=== PATIENT | female | born 1965 | race African-American/Black ===

== ENCOUNTER 2017-08-09 15:53 | Inpatient (IN) | payer BC ==
[2017-08-09 16:25] LABS: #Eosinphils 0.1 thou/uL (0.0-0.7); #Lymphocytes 1.5 thou/uL (1.20-3.40); #Monocytes 0.3 thou/uL (0.11-0.59); #Neutrophils 2.4 thou/uL (1.40-6.50); %Basophils 0.5 % (0.0-1.0); %Eosinophils 2.5 % (0.0-10.0); %Lymphocytes 35.2 % (21.0-51.0); %Neutrophils 54.8 % (42.0-75.0); Hemoglobin 13.4 g/dL (12.0-16.0); Mean Corpuscular HGB CONC 32.1 g/dL (32.0-36.0); Mean Corpuscular Hemoglobin 28.4 pg (27.0-31.0); Mean Corpuscular Volume 88.4 fl (81.0-99.0); Mean Platelet Volume 9.2 fL (7.4-10.4); Platelet Count 166 thou/uL (130-400); RBC Distribution Width 12.7 % (11.5-14.5); Red Blood Cell (RBC) Count 4.71 mill/uL (4.20-5.40); White Blood Cell (WBC) Count 4.3 thou/uL (4.8-10.8)
[2017-08-09 16:41] LABS: ALT (SGPT) 89 U/L (8-55); AST (SGOT) 54 U/L (5-34); Albumin 4.1 g/dL (3.5-5.0); Alkaline Phosphatase 80 U/L (40-150); Anion Gap 12 mmol/L (10-20); BUN (Urea Nitrogen) 20 mg/dL (7.0-18.7); Bilirubin, Total 1.1 mg/dL (0.2-1.2); CK (CPK) 199 U/L (29-168); Calc. Creatinine Clearance 0 mL/min (70-130); Calcium 9.8 mg/dL (7.8-10.44); Carbon Dioxide 26 mmol/L (22-29); Chloride 105 mmol/L (98-107); Estimated GFR-MDRD Greater than 90; Globulin 2.7 g/dL (2.4-3.5); Glucose 141 mg/dL (70-105); Potassium 4.1 mmol/L (3.5-5.1); Protein, Total 6.8 g/dL (6.0-8.3); Sodium 139 mmol/L (136-145)
[2017-08-09 16:45] LABS: CKMB 1.9 ng/mL (0-6.6); Troponin I 0.013 ng/mL (< 0.028)
--- NOTE | 2017-08-09 18:50 | RAD ---
CHEST ONE VIEW: History: Chest pain. FINDINGS: Cardiac silhouette is magnified and upper limits of normal in size. Pulmonary vasculature is unremark able. Mediastinum is midline. No lobar consolidation or evidence of pneumothorax. float builder evan ds overlie the chest. IMPRESSION: No active cardiopulmonary abnormalities are demonstrated. POS: [facility]
[2017-08-09 19:51] LABS: Troponin I 0.022 ng/mL (< 0.028)
[2017-08-09 21:14] VITALS: BMI 35.6
[2017-08-09 22:47] LABS: Troponin I 0.023 ng/mL (< 0.028)
[2017-08-09] MEDS ORDERED: HumaLOG 300 UNITS/3 ML VIAL SC PRN ×2 (23:02→23:09)
[2017-08-09] MEDS ORDERED: Dextrose 5% in Water 1,000 ML IV PRN (23:08)
[2017-08-09] MEDS ORDERED: Dextrose 50% Abboject 50 ML SYRINGE IVP PRN (23:08)
--- NOTE | 2017-08-10 03:47 | HP ---
PRIMARY CARE PHYSICIAN: Luan Aviles M.D. CHIEF COMPLAINT: Chest pain and fatigue. HISTORY OF PRESENT ILLNESS: This is a 51-year-old -[place] female with a history of hypertension, hyperlipidemia, type 2 diabetes, and a recent diagnosis of dysrhythmia. Workup has been being done with Dr. Man for Cardiology. She was recently started on propranolol for a dysrhythmia to try to prevent PVCs and tachycardia. The patient states that she started her first dose of the propranolol 2 days ago, she developed some nausea the next morning and this morning upon waking up, she developed fatigue, shortness of breath, tingling in her hands and on and off chest pains. She initially went to urgent care this morning. Initial EKG revealed a heart rate of 39 and due to her bradycardia and chest pain, she was sent to the emergency department for further evaluation. In the ED, she had a negative workup except for again abnormal EKG initially with bradycardia as well as frequent premature ventricular contractions. Upon interviewing the patient, she states that they were planning on seeing an esthetics instructor for further evaluation. She has now been discontinued from taking the propranolol being admitted for further evaluation and treatment. PAST MEDICAL HISTORY: Hypertension, hyperlipidemia, type 2 diabetes, gastroesophageal reflux disease, irritable bowel disease. MEDICATIONS: Include losartan and hydrochlorothiazide 100/25 mg daily, glipizide 10 mg b.i.d., metformin 500 mg b.i.d., rabeprazole 20 mg daily. She had been started on propranolol 60 mg daily, but discontinued this morning, dicyclomine 10 mg p.r.n. ALLERGIES: PENICILLIN. PAST SURGICAL HISTORY: Cholecystectomy, , and hysterectomy. SOCIAL HISTORY: She is with children. 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 No smoking, no drug use, no alcohol use. FAMILY HISTORY: Positive for heart disease. REVIEW OF SYSTEMS: As per the history of present illness. Constitutional: She denies any recent fevers, chills or recent illness. HEENT: No headache, visual or hearing changes. Cardiac: As per the history of present illness. Pulmonary: No cough or hemoptysis. Gastrointestinal: No vomiting, diarrhea, some nausea which is resolved now. Neurologic: No weakness, seizures, syncope. She has increased fatigue and tingling in her fingers which is resolved. Genitourinary: No dysuria or hematuria. PHYSICAL EXAMINATION: VITAL SIGNS: Temperature 98.4, pulse of 54, respirations 20, blood pressure 109 /69, pulse ox is 98% on room air. GENERAL: She is awake and alert, in no acute distress. Speech is clear. NECK: Supple, no JVD, adenopathy or bruits. HEART: S1S2 with ectopy; no murmur LUNGS: Clear bilaterally. ABDOMEN: Soft. EXTREMITIES: No clubbing, cyanosis or edema, 2+ peripheral pulses bilaterally. LABORATORY DATA: White blood cell count 4300, hemoglobin and hematocrit 13.4 and 41.7, platelets of 166. Sodium 139, potassium 4.1, chloride 105, CO2 of 26 , BUN and creatinine 20 and 0.72 with a GFR of 90, random glucose of 141. Last A1c was 7.0. AST and ALT are slightly elevated at 54 and 89. BNP was slightly elevated at 220. TSH is pending. Chest x-ray revealed no acute disease. ASSESSMENT AND PLAN: This is a 51-year-old female with history of hypertension , type 2 diabetes, now with episode of chest pain and fatigue. 1. Likely secondary to side effect from propranolol causing bradycardia, shortness of breath and fatigue. I will discontinue the propranolol and continue to monitor on telemetry. 2. Chest pain is resolved. Again, likely secondary to side effects. We will continue to monitor and continue to rule out myocardial infarction protocol. 3. Transaminitis, mild. We will recheck in the morning and monitor. 4. Type 2 diabetes. We will continue oral meds and start a sliding scale. 5. We will check echocardiogram and fasting lipids. SHELBYD
[2017-08-10 05:23] LABS: ALT (SGPT) 63 U/L (8-55); AST (SGOT) 31 U/L (5-34); Albumin 3.5 g/dL (3.5-5.0); Alkaline Phosphatase 73 U/L (40-150); Anion Gap 11 mmol/L (10-20); BUN (Urea Nitrogen) 19 mg/dL (7.0-18.7); Bilirubin, Total 0.7 mg/dL (0.2-1.2); Calc. Creatinine Clearance 141 mL/min (70-130); Calcium 9.3 mg/dL (7.8-10.44); Carbon Dioxide 23 mmol/L (22-29); Cardiac Risk 2.5 (Less than 4.5); Chloride 108 mmol/L (98-107); Cholesterol 163 mg/dl (< 200 Desired); Estimated GFR-MDRD Greater than 90; Globulin 2.2 g/dL (2.4-3.5); Glucose 179 mg/dL (70-105); HDL Cholesterol 65 mg/dL (>60 Neg Risk); LDL Cholesterol, Calculated 56 mg/dL; Potassium 3.7 mmol/L (3.5-5.1); Protein, Total 5.7 g/dL (6.0-8.3); Sodium 138 mmol/L (136-145); Triglycerides 209 mg/dL (Less than 150)
[2017-08-10 06:52] LABS: T4 4.9 ug/dL (4.87-11.72)
[2017-08-10] MEDS ORDERED: glipiZIDE 10 MG TAB PO SCH (08:00)
[2017-08-10] MEDS: metFORMIN 500 MG TAB PO SCH ×2 (08:41→16:47)
[2017-08-10] MEDS ORDERED: Aspirin 81 mg Enteric Coated Tablet PO SCH (09:00)
[2017-08-10] MEDS ORDERED: Losartan/Hydrochlorothiazide 100 mg/25 mg Tablet PO SCH (09:00)
--- NOTE | 2017-08-10 11:15 | PRG ---
DATE OF SERVICE: 08/10/2017 SUBJECTIVE: Ms. Amezcua was admitted yesterday to the emergency room. She apparently has some ash st discomfort as well as funny feelings to her chest. She has been started on medicine through her c ardiologist. At this time, she is resting quietly. She states she has had no further symptoms. LABORATORY DATA: Her electrolyte panel within normal limits. Serial troponins are negative thus far . Review of her rhythm strip shows no evidence of arrhythmogenic issues other than PVCs. IMPRESSION: This is a 51-year-old female with a history of type 2 diabetes mellitus with some appare nt chest discomfort associated with lightheadedness. PLAN: We will wait for Cardiology and make recommendations. She has an echocardiogram ordered and s tress testing that will be decided by Cardiology.
[2017-08-10 15:38] VITALS: BP 127/89; TEMP 98.7
--- NOTE | 2017-08-10 16:28 | CON ---
DATE OF CONSULTATION: 08/10/2017 CARDIOLOGY CONSULT ROOM NO: [id number]. The patient's primary care doctor is Dr. Luan Aviles, patient's primary gas line installer is Dr. Shaye Man, and referring doctor is Dr. Garsia. REASON FOR CARDIOLOGY CONSULTATION: Bradycardia. HISTORY OF PRESENT ILLNESS: Ms. Almanzar is a 51-year-old -Omani female with a significan t history of hypertension and diabetes. The patient was seen by Dr. Man in office as outpatient on 08/02/2017 for evaluation of long QT interval. She was seen by her primary care doctor and prescribe d azithromycin for sinus infection, which may cause prolonged QT interval and azithromycin was discon tinued on 05/16/2017 and doxycycline was started for patient's sinus infection. She is taking doxycy hurtado as needed. At that time in the office, patient was asymptomatic. EKG in the office showing lo ng QT with heart rate 87 and at this time, patient was prescribed propranolol 60 mg once a day. She started taking the medicine on Monday, which is and 08/08/2017 she started having inter mittent nausea twice through the night. The patient's condition getting worse with intermittent ches t discomfort and on Monday, she did not take propranolol due to those symptoms; however, patient s tarted feeling almost syncope, dizziness and tightness in her chest. Due to those symptoms, patient decided to present to the emergency department for further evaluation and treatment. At the ER, tierra ent was found to have heart rates going down to 30s, then with normal troponin level. This morning, during the initial Cardiology consult assessment, patient denies chest pain or discomfort, shortness of breath, nausea and vomiting or any other cardiac complaints. Patient's vital signs have been stab le with heart rate in the 70s-80s with frequent PVCs. She had gone to the bathroom several times alr lino without any cardiac complaints. She does not have any family history of a prolonged QT or aSCD; however, the patient has a family his tory of hypertension and diabetes. She does not have any cardiac workup before. PAST MEDICAL HISTORY: 1. Diabetes type 2. 2. Hypertension. 3. Sinus infection. PAST SURGICAL HISTORY: 1. with a partial hysterectomy. 2. Cholecystectomy. FAMILY HISTORY: Patient's father has a history of diabetes and hypertension. The patient's mother h as a history of hypertension, diabetes, and congestive heart failure. Family history of hypertension , diabetes to the patient's paternal side and the patient's cousin in paternal sides has a history of CABG at the age of around 40s. SOCIAL HISTORY: She is , has one daughter who is living well. 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 She de nied any history of smoking, ETOH, or illicit drug abuse. She rarely drinks coffee or any caffeine i ntake. ALLERGIES: She is allergic to PENICILLIN. HOME MEDICATIONS: 1. Aciphex 20 mg once a day. 2. Singulair 10 mg once a day for allergy. 3. Glimepiride 4 mg once a day. 4. Metformin 500 mg twice a day. 5. Valsartan/hydrochlorothiazide 100/25 mg once a day. 6. Propranolol ER 60 mg once a day. 7. Biotin 36256 mg once a day. REVIEW OF SYSTEMS: A 12-point review of systems reviewed and all negative. PHYSICAL EXAMINATION: VITAL SIGNS: Blood pressure 118/68, heart rate 70s-80s with sinus rhythm with the frequent PVCs, tem perature 97.8, respiratory rate 17, O2 saturation 97% with room air. GENERAL: The patient is awake, alert, in no acute distress. HEAD: Normocephalic, atraumatic. EYES: Extraocular muscle movement intact. ENT: Nose and oral mucosa moist without lesion. NECK: No JVD. Supple. Normal range of motion. RESPIRATORY: Clear to auscultate bilaterally. No wheezing, rales, or rhonchi noted. CARDIAC: Irregularly irregular, but able to auscultate frequent skipping beats. Normal S1, S2. The re are no S3 or S4. No murmurs or bruit noted. ABDOMEN: Soft and nontender or mass to palpate. Positive bowel sounds. SKIN: Warm. No bruise or lesions noted. MUSCULOSKELETAL: The patient was able to move all extremities without claudication. No edema. 2+ p ulses in the bilateral lower extremities, but no edema. LABORATORY DATA AND IMAGING DATA: WBC 4.3, hemoglobin 13.4, hematocrit 41.7, and platelet 166. Sodi um 138, potassium 3.7, BUN 19, creatinine 0.65, glucose 179, AST 63, ALT 73, CK-MB 1.9 and troponin 0 .013, 0.022, 0.023. Total cholesterol 163, triglycerides 209, HDL 65, LDL 56, TSH 1.0922, T4 of 4.9. Chest x-ray shows no acute cardiopulmonary abnormalities and 12-lead EKG at ER shows sinus rhythm, heart rate 74 with frequent PVCs, almost trigeminy PVCs and no ST segment change and no T-wave invers ion. ASSESSMENT AND PLAN: 1. Bradycardia, possible due to the side effect from the propranolol. Right now, the medication is on hold and the patient's heart rate and patient's condition is stable. She denied shortness of tavares th or fatigue. Due to the side effect from propranolol, we would like to place EP consult for furthe r evaluation and treatment plan. 2. History of prolonged QT interval. QT interval in the telemetry record and 12-lead EKG showing 0. 40-0.47. It is not more than that 0.48; however, due to patient cannot tolerate the propranolol, aga in we would like to request Dr. Warner, EP doctor to evaluate this patient. 3. Hypertension. The patient's blood pressure is having stable at this moment. We like to continue current medication. 4. Diabetes type 2. A.c and at bedtime blood glucose check with metformin and glyburide which is ma naged by primary care doctor. Thank you for allowing the Cardiology Service to participate in the care of this patient. We like to follow along with other primary care doctors and we would like to make recommendations as appropriat e.
[2017-08-10] MEDS ORDERED: Glimepiride 4 MG TAB PO SCH (16:30)
--- NOTE | 2017-08-11 09:15 | CON ---
DATE OF CONSULTATION: 08/10/2017 ELECTROPHYSIOLOGY CONSULTATION REPORT REFERRING PHYSICIAN: Shaye Man M.D. HISTORY AND PRESENT ILLNESS: I am seeing Ms. Almanzar at our [facility] Telemetry Floor as an electrophysiology actuarial consultant. Her problems are: 1. Near syncopal spells. 2. Frequent premature ventricular contractions, occasionally bigeminy, possibly associated with a pulse deficit giving rise to low pulse rates. 3. History of long QT. 4. Normal LVEF by 2D echocardiogram from 08/10/2017, demonstrating LVEF of 50% to 55%, mild MR, mild TR. 5. Hypertension, hyperlipidemia, and type 2 diabetes. 6. History of gastroesophageal reflux disease. 7. History of irritable bowel disease. ALLERGIES: PENICILLIN. MEDICATIONS: At home include losartan/hydrochlorothiazide 100/25 mg; glipizide ; metformin; rabeprazole; propranolol 60 mg daily, just start this morning; dicyclomine. SUBJECTIVE: Ms. Almanzar is here for episode of dizziness, which drove her to the urgent care center. She was noted to have low pulse rates, but her EKG did not demonstrate bradycardia, but frequent PVCs. The patient was transferred to our facility for further cardiac evaluation. It seems that she has been recently seeing Dr. Man. She noted long QT intervals on her EKG. At that point, she was transiently treated with an antibiotic, possibly a Z-Micah. She never had a prior history of dizziness or passing out spells, no PND, orthopnea or other signs of fluid overload. No angina, no neurological deficits, no bleeding issues. REVIEW OF SYSTEMS: Rest of review of 12-point systems otherwise unremarkable. PAST MEDICAL HISTORY: As above. SOCIAL HISTORY: The patient denies smoking, ETOH or drug abuse. She is , with children. 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 FAMILY HISTORY: Not contributory, but significant for heart disease. OBJECTIVE: VITAL SIGNS: Blood pressure is 127/89, heart rate 70, respirations 16, temperature 98.7 degrees Fahrenheit. GENERAL: Alert and oriented woman, in no apparent distress. NECK: Supple. Jugular veins not distended. CHEST: Coarse without crackles. CARDIOVASCULAR: Heart sounds are regular to rate and rhythm. No murmur or gallop. ABDOMEN: Benign. Bowel sounds positive. EXTREMITIES: Lower extremities without edema, clubbing or cyanosis. Pulses are adequate. NEUROLOGIC: The patient is nonfocal. MUSCULOSKELETAL: No joint swelling or deformities. SKIN: Without rash. DATABASE: EKGs reviewed reveals sinus rhythm, normal AV conduction. QT interval seen 67 milliseconds. The frequent PVCs are noted. LABORATORY DATA: White count is 4.3, hemoglobin 13.4, platelet count is 166. Sodium 130, potassium 3.7, BUN is 19, creatinine is 0.65. ASSESSMENT AND PLAN: Ms. Almanzar is a pleasant 51-year-old woman with prior history of hypertension and recently found prolonged QT on EKGs. She was tried on beta sera, but her rates are more symptomatic with dizzy spells. This morning, she is noted to have frequent PVCs though. At this point, her symptoms improved, she has no chest pains. We discussed the issues with her. Obviously beta sera made her more symptomatic; therefore, need to be stopped. I am wondering whether her low heart rate reading was related to pulse deficits. It is possible that adding the beta sera to the regimen made her overall heart rates lower and hence the process made her more symptomatic. We discussed further treatment options. Antiarrhythmic choices are limited, hence the possibility of long QT at baseline. I would avoid class 3 agents for sure. On the other hand, she could be a candidate for radiofrequency ablation. The morphology of PVCs are right bundle inferior axis with transition in V2, V3, whichcould originate from the RV outflow tract or possibly aortic cusp area. I discussed the option with her. We also detailed the potential benefit from long-term monitoring, especially with her long QT syndrome and recent recurrent near syncopal spells with an event monitor. She is so far and decided and we will discuss further with Dr. Man. We will make arrangements to follow her outpatient and possibly set up for ablation. YOU
--- NOTE | 2017-08-11 14:13 | ADD-CON ---
ADDENDUM DATE OF CONSULTATION: 08/10/2017 CARDIOLOGY CONSULTATION Please refer to the notes already dictated by nurse practitionerAnya INDICATION FOR CONSULTATION: Significant bradycardia. HISTORY OF PRESENT ILLNESS: This is a very pleasant 51-year-old female who was seen by us in the off ice on 08/02/2017 and she has been diagnosed with a long QT syndrome. She has been also seen by elec trophysiologist. We discussed her case with sand analyst previously and she also was having P VCs and they suggested we try beta blockers. Unfortunately, the patient developed significant bradyc ardia associated with the beta blockers and these have now been held, but she continues to have frequ ent PVCs with a prolonged QT. It is felt best that she now undergone an ablation, but she is stable at this time to be discharged to home. She was seen earlier today and most likely will need to under go an ablation in the near future. As far as her past medical history, social history, family histor y, review of systems, please refer to the notes already dictated as well as her list of medications. MEDICATIONS: Her present medications prior to admission include Aciphex, montelukast, glimepiride, m etformin, losartan and we have started her on propranolol 60 mg and this has now been stopped and she was also taking Biotin. PHYSICAL EXAMINATION: GENERAL: Reveals a very pleasant, well-developed, well-nourished female who is in no acute distress. She is alert and oriented. VITAL SIGNS: Her blood pressure is 127/89. She is afebrile. Heart rate is 70s-80s and shows a sinu s rhythm with PVCs, respiratory rate 16. HEENT: Shows head to be normocephalic and atraumatic. Carotid pulses are present. There were no br uits. There is no JVD. The thyroid is not enlarged. Oral mucosa was pink and moist. CHEST: Clear. CARDIOVASCULAR: Reveals a regular rate and rhythm with significant ectopy at times, other times not. She has no gross murmurs, heaves, thrills, bruits or rubs. ABDOMEN: Shows obesity with positive bowel sounds. No organomegaly or masses noted. Femoral pulses are present. EXTREMITIES: Showed no clubbing, cyanosis or edema. Pedal pulses are also present. NEUROLOGIC: The patient appears to be fully intact. There were no gross focal motor deficits. She is able to ambulate without difficulties. SKIN: Warm and dry. IMPRESSION: 1. Bradycardia due to iatrogenic causes after starting blockers for premature ventricular contractio ns. 2. Premature ventricular contractions. She has frequent premature ventricular contractions and will undergo a monitor. This will be ordered for her and she will most likely receive at her residence. Then, she will follow up with sand analyst as soon as possible, which she has scheduled for n ext Monday to discuss most likely ablation of the premature ventricular contractions. The long QT s yndrome will be dealt with by the sand analyst. 3. Hypertension. This is under good control at this time. 4. History of diabetes. This will also be dealt with by the primary care service. 5. Gastroesophageal reflux disease. She is stable as long as she is taking the Aciphex. There were no other significant problems associated with the patient at this time and she appears to be stable. From my point of view, she could be discharged home and follow up with the electrophysiol ogist next week.
== END 2017-08-10 18:18 | disposition home or self-care (01) | DRG 310 ==
LOC: ERS 15:53 → 2NO 19:31 → OBSVTOIN 19:31
PROVIDERS: ADMIT Family Medicine; ATTEND Family Medicine
DX: R00.1 Bradycardia, unspecified (principal); R07.9 Chest pain, unspecified; T44.7X5A Adverse effect of beta-adrenoreceptor antagonists, initial encounter; I10 Essential (primary) hypertension; E78.5 Hyperlipidemia, unspecified; E11.9 Type 2 diabetes mellitus without complications; K21.9 Gastro-esophageal reflux disease without esophagitis; Z79.84 Long term (current) use of oral hypoglycemic drugs; Z79.899 Other long term (current) drug therapy
CPT/HCPCS: 36415; 36416; 71045; 80053; 80061; 82550; 82553; 83880; 84436; 84443; 84484; 85025; 93005; 93306; 94760

== ENCOUNTER 2017-09-11 10:28 | Outpatient (CLI) | payer BC ==
--- NOTE | 2017-09-12 13:07 | MMO ---
SCREENING MAMMOGRAM: Date: 09-11-17 Comparison: 05-25-16, 05-25-15 History: Screening. FINDINGS: This study is interpreted with the assistance of computer aided detection. The breast parenchyma is primarily fatty replaced. Stable. Benign calcification is noted on the left. There is no dominant mass or architectural distort ion. No concerning microcalcifications are seen. IMPRESSION: BIRADS 2 - benign findings. Annual screening mammography advised. POS: [facility]
== END 2017-09-11 10:29 | disposition home or self-care (01) ==
LOC: SCSMAMMO 10:28
PROVIDERS: ATTEND Obstetrics & Gynecology
DX: Z12.31 Encounter for screening mammogram for malignant neoplasm of breast (principal)
CPT/HCPCS: 77067

== ENCOUNTER 2017-09-15 12:55 | Outpatient (CLI) | payer BC ==
[2017-09-15 14:02] LABS: Hemoglobin 13.2 g/dL (12.0-16.0); Mean Corpuscular HGB CONC 32.9 g/dL (32.0-36.0); Mean Corpuscular Hemoglobin 28.6 pg (27.0-31.0); Mean Corpuscular Volume 86.9 fL (78.0-98.0); Mean Platelet Volume 9.4 fL (7.4-10.4); Platelet Count 138 thou/uL (130-400); RBC Distribution Width 12.3 % (11.5-14.5); Red Blood Cell (RBC) Count 4.62 mill/uL (4.20-5.40); White Blood Cell (WBC) Count 4.1 thou/uL (4.8-10.8)
[2017-09-15 14:07] LABS: PTT 24.8 SEC (22.9-36.1); Prothrombin Time 13.1 SEC (12.0-14.7)
[2017-09-15 14:25] LABS: Anion Gap 20 mmol/L (10-20); BUN (Urea Nitrogen) 21 mg/dL (7.0-18.7); Calc. Creatinine Clearance 0 mL/min (70-130); Carbon Dioxide 20 mmol/L (22-29); Chloride 102 mmol/L (98-107); Estimated GFR-MDRD Greater than 90; Glucose 290 mg/dL (70-105); Potassium 3.7 mmol/L (3.5-5.1); Sodium 138 mmol/L (136-145)
== END 2017-09-15 12:56 | disposition home or self-care (01) ==
LOC: LABBT 12:55
PROVIDERS: ATTEND Internal Medicine Cardiovascular Disease
DX: Z01.818 Encounter for other preprocedural examination (principal); I49.3 Ventricular premature depolarization
CPT/HCPCS: 80048; 85027; 85610; 85730; 93005; 93010

== ENCOUNTER 2017-09-18 06:37 | Observation (INO) | payer BC ==
[2017-09-15 13:56] VITALS: BMI 35.6
[2017-09-18] MEDS ORDERED: Lidocaine 1% (PF) 30 ML VIAL ONE (08:23)
[2017-09-18] MEDS ORDERED: Meperidine HCl/PF 25 MG/ML VIAL ONE (08:34)
[2017-09-18] MEDS ORDERED: Midazolam HCl 2 mg/2 ml Vial ONE ×2 (08:34→09:13)
[2017-09-18] MEDS ORDERED: Heparin 25,000 units/D5W 500 ML ONE (10:17)
[2017-09-18] MEDS ORDERED: Heparin 10,000 UNITS/1 ML VIAL ONE ×2 (10:17→10:44)
[2017-09-18] MEDS ORDERED: Fentanyl 100 MCG/2 ML VIAL ONE ×3 (10:44→13:08)
[2017-09-18] MEDS ORDERED: Isoproterenol 0.2 MG/1 ML AMP ONE (11:43)
[2017-09-18] MEDS ORDERED: Protamine Sulfate 50 MG/5 ML VIAL ONE (12:34)
--- NOTE | 2017-09-18 12:37 | OP ---
DATE OF PROCEDURE: 09/18/2017 ELECTROPHYSIOLOGY/RADIOFREQUENCY ABLATION REPORT REFERRING PHYSICIAN: Dr. Shaye Man SURGEON: Dr. Geronimo Warner REASON FOR PROCEDURE: Ms. Almanzar is a 52-year-old woman with a history of prolonged QT and also bradycardia on beta-blockers were initiated for her prolonged QT syndrome. She had near syncopal spells at that time which improved with holding beta blockers. She has noted to have very frequent PVCs, which was high symptomatic, but again could not tolerate beta sera very well. She is here for radiofrequency ablation of the PVCs. PROCEDURE: The patient received deep sedation by Anesthesia specialist with TIVA and after adequate sedation achieved, the left and right femoral venous area was prepped and draped, anesthetized using subcutaneous lidocaine. With ultrasound guidance a 8-Australian short sheath was introduced into the right femoral vein, an 11 Australian short sheath into the left femoral vein. During the case, the right femoral artery was also accessed under ultrasound guidance and an 8 Australian short sheath was introduced. Through the sheaths on the left side, an ice catheter was advanced to the right atrium. The right ventricular and monitoring of the catheter positions as a monitor for effusion was performed throughout case. Also, delineation of the left, right and noncoronary cusp were are also ____ by this catheter. The left main, right coronary artery was also pictured. A Decapolar catheter was advanced to the right atrium and then the right ventricle. Basic EP study was performed. The measurements; AH was 76, HV 50 milliseconds, IA 138, QRS 71 milliseconds, QT 361 milliseconds. AV Wenckebach cycle length was 260 milliseconds. The VA ERP VA Wenckebach cycle was the same , the ERP was 600/280 milliseconds. A extrastimuli testing was performed with ERP measured to be 600/310/270/230 milliseconds with ventricular extrastimuli decremented to the refractory period. No ventricular tachyarrhythmia induced. Very frequent PVCs were noted which were right bundle and inferior axis in morphology. These PVCs were used to perform activation map in the right ventricle and also through a retrograde aortic approach. The sinus of Valsalva as well as the left ventricular outflow tract was also mapped. The prevailing morphology PVCs' earliest activation was 10 ms prior to the QRS in the right coronary cusp. 20 ms in the left ventricular outflow tract's septal portion but earliest activation was demonstrated eventually in the the right ventriclular outflow tract posterioseptal portion, This area and the LV septal area was extensively ablated and we achieved elimination of the PVCs. The same morphology PVCs did return,and also different morphology has recurred, multiple ablation was performed in the area. Reduced burden of the PVCs were noted in the end of the case. At the end of the case, no change in cardiac silhouette and no pericardial effusion seen by ICE imaging. Total of 22 min ablation was delivered. CONCLUSION: Successful mapping and ablation of the PVCs, although with reduction of burden seen, but regular PVC still noted in the case. If burden does not improve with post-ablation on monitoring with continued beta sera therapy, could consider epicardial approach as well. [facility]
[2017-09-18] MEDS ORDERED: Nitroglycerin 0.4 MG TAB (25 Tab Bottle) SL PRN (18:15)
[2017-09-18] MEDS: Glimepiride 4 MG TAB PO SCH (20:18)
[2017-09-18] MEDS ORDERED: metFORMIN 500 MG TAB PO SCH (21:00)
[2017-09-18] MEDS ORDERED: Montelukast Sodium 10 mg Tablet PO SCH (21:00)
[2017-09-18] MEDS ORDERED: Famotidine 20 MG TAB PO SCH (22:30)
[2017-09-18] MEDS: Mag-Al 1200 mg/1200 mg/30 ML UDCUP PO PRN (23:43)
[2017-09-19] MEDS: Mag-Al 1200 mg/1200 mg/30 ML UDCUP PO PRN (07:16)
[2017-09-19] MEDS: Glimepiride 4 MG TAB PO SCH (08:16)
[2017-09-19] MEDS ORDERED: Aspirin 81 mg Enteric Coated Tablet PO SCH (09:00)
[2017-09-19] MEDS ORDERED: Losartan/Hydrochlorothiazide 100 mg/25 mg Tablet PO SCH (09:00)
[2017-09-19 11:46] VITALS: TEMP 98.5
[2017-09-19 15:14] VITALS: BP 132/84
--- NOTE | 2017-09-20 10:39 | DIS ---
DATE OF ADMISSION: 09/18/2017 DATE OF DISCHARGE: 09/19/2017 REFERRING PHYSICIAN: Shaye Man M.D. ADMITTING DIAGNOSES: 1. History of frequent PVCs: A. Trans to propranolol therapy with subsequent syncope. B. Status post elective RVOT-PVC ablation by Dr. Warner on 09/18/2017. 2. History of prolonged QT syndrome without documented torsades like arrhythmias. 3. History of preserved left ventricular systolic function. HOSPITAL COURSE: Ms. Almanzar was admitted for elective ablation procedure, which was performed yes terday. She had an extensive mapping including both the right ventricular outflow tract, left ventri cular outflow tract and the coronary sinuses as well. The earliest activation from both the left kelly tricular outflow tract and the right ventricular outflow tract were ablated. She still has residual PVCs at the end of the procedure and throughout the evening of the procedure on the subsequent day, t he PVCs seems to have resolved. She is feeling well post-ablation. She had mild burning-like sensat ion overnight suggestive of some pericardial irritation. No true angina is noted. The groins remain ed without reaction. No swelling or bleeding occurred. She remained hemodynamically stable. PHYSICAL EXAMINATION: VITAL SIGNS: Blood pressure 133/84, heart rate is 93, respirations 18, temperature 98.5 degrees, afe brile. GENERAL: Alert, oriented woman in no apparent distress. NECK: Supple. Jugular veins are distended. CHEST: Coarse crackles, no regular heart sounds are heard. No murmur, gallop or rub is appreciated. ABDOMEN: Benign. Both groins sites are healing well. Thorough chest x-ray reviewed revealing sinus rhythm with occasional PVCs, which are diminishing by . ASSESSMENT AND PLAN: Ms. Almanzar is a pleasant 52-year-old woman who has history of single PVCs an d possible long QT syndrome. She is on low dose beta sera therapy, which she could not tolerate O N higher dosages as syncope occurred in the past and stopped. On the other hand, she underwent an ab lation procedure, checking the the right ventricular outflow tract. Both left and right ventri austin ablations were performed. Still had residual PVCs, but today the PVCs are diminishing. Our plan at this point is to discharge her and continue low dose beta sera therapy as before. She is encouraged to take ibuprofen versus Motrin over the counter if significant pericardial irritation is present for the next couple of days and is advised to notify us in the office. Routine followup is requested in 4-6 weeks.
== END 2017-09-19 15:05 | disposition home or self-care (01) ==
LOC: CCL 06:37 → 2SW 13:32
PROVIDERS: ADMIT Internal Medicine Cardiovascular Disease; ATTEND Internal Medicine Cardiovascular Disease
DX: I49.3 Ventricular premature depolarization (principal); I10 Essential (primary) hypertension; E78.5 Hyperlipidemia, unspecified; E11.9 Type 2 diabetes mellitus without complications; Z79.82 Long term (current) use of aspirin; Z79.84 Long term (current) use of oral hypoglycemic drugs; Z79.899 Other long term (current) drug therapy
CPT/HCPCS: 36416; 76942; 85347; 93613; 93623; 93654; 93662; 93798; 96360; 96361; C1730; C1759; C1769; G0378; J1644; J2001; J2175; J2250; J2720; J3010

== ENCOUNTER 2017-11-21 09:03 | Observation (INO) | payer BC ==
[2017-11-21 09:35] LABS: #Eosinphils 0.1 thou/uL (0.0-0.7); #Lymphocytes 1.4 thou/uL (1.20-3.40); #Monocytes 0.3 thou/uL (0.11-0.59); #Neutrophils 2.6 thou/uL (1.40-6.50); %Basophils 0.4 % (0.0-1.0); %Eosinophils 1.8 % (0.0-10.0); %Lymphocytes 32.1 % (21.0-51.0); %Monocytes 6.8 % (0.0-10.0); %Neutrophils 58.9 % (42.0-75.0); Hemoglobin 12.7 g/dL (12.0-16.0); Mean Corpuscular HGB CONC 31.7 g/dL (32.0-36.0); Mean Corpuscular Hemoglobin 27.9 pg (27.0-31.0); Mean Corpuscular Volume 87.9 fL (78.0-98.0); Mean Platelet Volume 9.7 fL (7.4-10.4); Platelet Count 139 thou/uL (130-400); RBC Distribution Width 12.7 % (11.5-14.5); Red Blood Cell (RBC) Count 4.56 mill/uL (4.20-5.40); White Blood Cell (WBC) Count 4.4 thou/uL (4.8-10.8)
[2017-11-21 10:01] LABS: CKMB 2.6 ng/mL (0-6.6); Troponin I Less than 0.010 ng/mL (< 0.028)
--- NOTE | 2017-11-21 10:18 | RAD ---
RADIOGRAPH CHEST 1 VIEW: HISTORY: A 52-year-old female with chest pain. FINDINGS: There are no air space densities, pulmonary edema, pneumothorax, or cardiomegaly. The lateral costop hrenic angles are sharp. IMPRESSION: No acute cardiopulmonary findings. jn [] POS: COLLEEN
[2017-11-21 12:17] LABS: Albumin 3.7 g/dL (3.5-5.0)
[2017-11-21] MEDS ORDERED: Nitroglycerin 2% Ointment 1 INCH/1 GM Packet ONE (12:18)
[2017-11-21 12:19] LABS: Calcium 9.8 mg/dL (7.8-10.44); Chloride 104 mmol/L (98-107); Potassium 4.2 mmol/L (3.5-5.1); Sodium 137 mmol/L (136-145)
[2017-11-21 12:20] LABS: Globulin 3.2 g/dL (2.4-3.5); Glucose 127 mg/dL (70-105); Protein, Total 6.9 g/dL (6.0-8.3)
[2017-11-21 12:21] LABS: Anion Gap 18 mmol/L (10-20); Carbon Dioxide 19 mmol/L (22-29)
[2017-11-21 12:22] LABS: Bilirubin, Total 0.8 mg/dL (0.2-1.2)
[2017-11-21 12:23] LABS: Alkaline Phosphatase 53 U/L (40-150)
[2017-11-21 12:24] LABS: BUN (Urea Nitrogen) 22 mg/dL (7.0-18.7); Calc. Creatinine Clearance 0 mL/min (70-130); Estimated GFR-MDRD Greater than 90
[2017-11-21 12:25] LABS: AST (SGOT) 36 U/L (5-34)
[2017-11-21 12:26] LABS: ALT (SGPT) 31 U/L (8-55); CK (CPK) 111 U/L (29-168)
[2017-11-21 13:09] LABS: Troponin I Less than 0.010 ng/mL (< 0.028)
[2017-11-21] MEDS ORDERED: Ondansetron ODT 4 MG TAB PO PRN (14:25)
[2017-11-21] MEDS ORDERED: Ondansetron HCl/PF 4 MG/2 ML Vial IVP PRN (14:25)
[2017-11-21] MEDS ORDERED: Acetaminophen 325 MG TAB PO PRN (14:25)
[2017-11-21 14:31] VITALS: BMI 35.8
[2017-11-21] MEDS ORDERED: Insulin Regular 300 UNITS/3 ML VIAL SC PRN (14:59)
[2017-11-21] MEDS ORDERED: Dextrose 50% Abboject 50 ML SYRINGE SLOW IVP PRN (14:59)
[2017-11-21] MEDS ORDERED: Dextrose 5% in Water 1,000 ML IV PRN (14:59)
[2017-11-21 15:51] LABS: Troponin I Less than 0.010 ng/mL (< 0.028)
[2017-11-21] MEDS: Glimepiride 4 MG TAB PO SCH (20:30)
[2017-11-21] MEDS ORDERED: metFORMIN 500 MG TAB PO SCH (21:00)
[2017-11-21] MEDS ORDERED: Montelukast Sodium 10 mg Tablet PO SCH (21:00)
--- NOTE | 2017-11-22 00:29 | HP ---
DATE OF ADMISSION: 11/21/2017 ADMITTING PHYSICIAN: Luan Aviles MD HISTORY OF PRESENT ILLNESS: Patient is a 52-year-old female who has a history of multiple PVCs assoc iated with ventricular arrhythmias. She is status post ablation. She has been doing well after abla tion approximately 4-5 weeks ago. Now notes she had onset of palpitations today associated with some chest pain, some shortness of breath. She did not note any nausea, vomiting, diarrhea, no fever has been reported. She came to the ER, she is found to have some ventricular bigeminy on a recurrent ba sis with multiple PVCs noted. Initial cardiac enzymes are negative. She was treated with topical ni troglycerin. She is now being admitted because she needs to have further ablation therapy. Previous ly, her manager part and compliance consultant were consulted. He stated that she be admitted; however , he does not admit patients. At the time I interviewed, the patient was resting comfortably. She was feeling no further chest christian n or shortness of breath. Otherwise, no other medical complaints. ALLERGIES: She has known allergies. CURRENT MEDICATIONS: Losartan/hydrochlorothiazide 100/25 one daily, metformin 500 mg b.i.d., glimepi ride 4 mg dose 1 daily, metoprolol 25 mg daily, aspirin 81 mg daily, nitroglycerin as needed for ches t pain. PAST MEDICAL HISTORY: Positive for the above noted cardiac history. Additionally, she also has a hi story of irritable bowel, GERD, type 2 diabetes mellitus, and hypertension. PAST SURGICAL HISTORY: Positive for cholecystectomy, section, and hysterectomy. SOCIAL/PERSONAL HISTORY: She is . She does not smoke nor does she drink alcohol. REVIEW OF SYSTEMS: Genitourinary: Negative. Gastrointestinal: Negative. Cardiovascular: Positiv e as above. Neurologic: Otherwise, negative. PHYSICAL EXAMINATION: VITAL SIGNS: Blood pressure 156, temperature 98.1, pulse 78 regular. GENERAL: She is alert, active, in no distress. HEENT: Normocephalic, atraumatic. Extraocular muscles are intact. Sclerae and conjunctivae are austin ar. Throat clear. NECK: Supple, full range of motion. No masses, no carotid bruits. Thyroid midline without thyromeg carla or thyroid masses. LUNGS: Clear. HEART: Reveals a regular rhythm without murmur, gallops or rubs, although multiple PVCs were auscult ated. ABDOMEN: Soft, nontender. NEUROLOGIC: Cranial nerves II through XII are intact. Motor power and strength testing normal throu ghout upper and lower extremities. LABORATORY DATA: Hemoglobin 12.7, hematocrit 40.1, white blood count 4.4. Sodium 137, potassium 4.2 , chloride 104, CO2 of 19, BUN 22, creatinine 0.73. Troponins x3 are negative. IMAGING: Chest x-ray is clear. IMPRESSION: Recurrent ventricular arrhythmia, multiple premature ventricular contractions with bigem iny. PLAN: The patient will be placed in observation. Electrophysiology consult will be obtained. All f khang recommendations and treatment will be based on consult.
--- NOTE | 2017-11-22 01:44 | CON ---
DATE OF CONSULTATION: 11/21/2017 DATE OF ADMISSION: 11/21/2017 INDICATION FOR CONSULTATION: This is a 52-year-old female with history of PVCs and chest pain. HISTORY OF PRESENT ILLNESS: This very unfortunate 52-year-old female who has had a history of chest pain for several years now. She was seen in the office due to abnormal EKG, which showed a long QT syndrome and also showed ventricular bigeminy. She had frequent PVCs. She had a monitor placed, which showed multiple multiple PVCs and bigeminal episodes, was seemed to be pretty consistent. She then was seen by the tool crib clerk and underwent ablation of the PVCs in 09/18/2017. She has been doing quite well until just recently, she started having more episodes of the chest discomfort as well as the frequent PVCs. This seemed to be somewhat related, as she was not having any significant chest discomfort until the PVCs returned. At this time, she is quite comfortable. She continues to have PVCs. She had a negative stress test on 08/31/2017. At this time, her cardiac enzymes are negative. EKG does not show any evidence of ischemia, but she continues to have PVCs. She has been seen in consultation by the tool crib clerk, Dr. Warner again today. PAST MEDICAL HISTORY: Significant for some hypertension, diabetes, varicose veins. She has had a cholecystectomy, hysterectomy. She had a and she has had PVCs and ablation. ALLERGIES: No known drug allergies. MEDICATIONS: Losartan/hydrochlorothiazide 100/25 once a day, Aciphex 20 mg daily, glimepiride 4 mg b.i.d., metformin 500 mg b.i.d., montelukast 10 mg daily , metoprolol ER 25 mg 1 a day, aspirin 81 mg a day, and nitroglycerin p.r.n. as needed sublingual. SOCIAL HISTORY: There is no history of tobacco abuse or alcohol use. She has one daughter, she is . REVIEW OF SYSTEMS: A 12-point review of systems unremarkable, that was noted in the history of the present illness. She denied any significant chest pain, otherwise that she has noticed recently apparently, she has been seen by the distribution center associate, was told that she may have early cataracts with some glaucoma. She continues to have gastroesophageal reflux disease. She did have some mild nausea and diarrhea yesterday, but these resolved. She also complains of occasional tingling in the hands and feet, which she has had for quite some time which has been intermittent. Otherwise, the 12-point review of systems unremarkable, that was noted in the history of present illness. PHYSICAL EXAMINATION: GENERAL: Reveals a well-developed, well-nourished female who is in no acute distress. VITAL SIGNS: She is afebrile, respiratory rate is 12, heart rate 78 per minute. She has O2 saturation of 98%, blood pressure 100/56. HEENT: Shows the head to be normocephalic and atraumatic. Carotid pulses are present. There were no bruits. No JVD. The thyroid is not enlarged. Mucosa is pink and moist. CHEST: Clear to auscultation without rales, rhonchi, or wheezing. CARDIOVASCULAR: Exam reveals a regular rhythm with occasional ectopy. She does appear to have ventricular bigeminy during the examination. Otherwise, there were no significant murmurs, heaves, thrills, bruits, or rubs. ABDOMEN: Shows obesity with positive bowel sounds. No organomegaly or masses noted. Femoral pulses are present. EXTREMITIES: Showed no clubbing, cyanosis, or edema. NEUROLOGIC: The patient appears to be intact. SKIN: Warm and dry. IMPRESSION: 1. Frequent PVCs, which has undergone recent ablation. She will most likely need to undergo a repeat ablation. Dr. Warner has seen her in consultation today. He will manage her medications as far as her PVCs are concerned. 2. Chest pain. She had a recent stress test earlier this year, approximately 2 months ago, did not show any evidence of ischemia. She will be highly unlikely that she has developed any significant abnormalities for her coronary artery disease is concerned. She has minimal risk factors except for the diabetes and hypertension that would account for coronary artery disease and is otherwise relatively healthy female and she has had this pain in the past for the last couple of years. I would suspect that if there is any significant, she would have some issues prior to now. 3. Diabetes. This will be dealt with by the primary care service. 4. Hypertension. This is under good control at this time. She is actually on the low side but is denying any symptoms at this time. We will be more than happy to continue to follow the patient with you, but I believe the most pertinent will be for the tool crib clerk to perform a repeat ablation or medically managed her PVCs. She does have a history of long QT making it more difficult for antiarrhythmic medications. We will be more than happy to continue to follow the patient with you. 5. Grade I diastolic dysfunction, but she has been relatively in asymptomatic with this. Ejection fraction has been about 50%-55%. She has had a history of a right bundle branch block in the past. Her present EKG does not indicate this , but she does have what appears to be a frequent PVCs this is now bigeminal sometimes trigeminal pattern. MTDD
[2017-11-22 08:15] VITALS: BP 131/60; TEMP 98.5
--- NOTE | 2017-11-22 08:20 | CON ---
DATE OF SERVICE: 11/21/2017 ELECTROPHYSIOLOGY FOLLOWUP NOTE REFERRING PHYSICIAN: Dr. Aviles. I am seeing Ms. Almanzar at our [facility] telemetry floor as a followup. PROBLEMS: 1. Recurrent PVCs. A. Prior history of PVCs prompting an EP study and radiofrequency ablation on 09/2017 with some redu ction of PVC burden from the RVOT and LVOT ablation positions. 2. Atypical chest pains, no prior history of heart disease or heart attacks. History of preserved L V function on the prior echocardiograms. 3. History of prolonged QT syndrome without profound ventricular arrhythmias. 4. Prior history of syncope in the setting of a beta sera use and frequent PVCs. 5. Risk factors including hypertension, hyperlipidemia, and type 2 diabetes. 6. History of GI bleed, and inflammatory bowel disease. ALLERGIES: None. MEDICATIONS: Currently included a metformin, Aciphex, montelukast, losartan, glimepiride, metoprolol succinate, nitroglycerin, aspirin.. SUBJECTIVE: Ms. Almanzar was readmitted due to atypical chest pains. This lady has experienced jade e lightheadedness and also increasing frequency of periodic chest squeezing, which was Hallmark of he r prior symptoms with her PVCs. She did not completely pass out. Her chest tightness sensations wer e not radiating and nonexertional. They were intermittent and recurrent. She did take nitroglycerin with some relief, though. She had no fever, chills, or cough. No stroke-like symptoms. There is n o new initiated medications. REVIEW OF SYSTEMS: Twelve point system otherwise unremarkable. PAST MEDICAL HISTORY: As above. SOCIAL HISTORY: The patient denies smoking, ETOH or drug use. FAMILY HISTORY: Noncontributory. OBJECTIVE: VITAL SIGNS: Blood pressure is 156/70, respirations 12, temperature 98.1 degrees Fahrenheit. GENERAL: Alert and oriented woman in no apparent distress. NECK: Supple. Jugular veins not distended. CHEST: Coarse, no crackles. CARDIOVASCULAR: Heart sounds are regular to rate and rhythm. No murmur or gallop. ABDOMEN: Benign. Bowel sounds positive. EXTREMITIES: Lower extremities without edema, clubbing or cyanosis. DATABASE: EKGs reviewed, sinus rhythm with bigeminy PVCs, rate of 90 beats per minute. The PVCs are left bundle inferior axis in morphology with transition, is in between V2 and V3. PVCs are similar to prior EKGs. The QTC is prolonged at 479 milliseconds. LABORATORY DATA: Revealing white count 4.4, hemoglobin 12.7, platelet count is 139. Sodium 137, pot assium 4.2, BUN is 22, creatinine 0.73. Troponin levels are negative x3. ASSESSMENT AND PLAN: Ms. Almanzar is a pleasant 52-year-old woman with history of frequent and high ly symptomatic PVCs for which she underwent a radiofrequency ablation about 2 months ago with some re lief of her PVC burden, but not complete elimination of the PVCs. Now, she had recurrence with more prolonged bigeminy spells, which is likely the cause of her main symptoms. She also has atypical ash st pains. She again has been present before with her PVCs as well and so far cardiac enzymes are neg ative. I discussed the treatment options with her. Regarding her PVCs, medical management is difficult, severo ecially in view of the concomitant QT prolongation. Hence antiarrhythmic agents are in general would be difficult to administer. The class 1C agents and class III agents are likely would be contraindi cated. 1. Repeat ablation is a consideration, although I think it will be more beneficial for her to underg o this in a center capacities, possibly in [facility] in [place]. I detailed that option with her. She is interested, we will organize this as an outpatient. 2. Chest pains, atypical. Negative cardiac enzymes. Discussed with Dr. Man and she will determine whether further workup is necessary. 3. History of bradycardia likely post deficit, not true bradycardia. At this point, continue beta b lockers. 4. We will follow with you.
[2017-11-22] MEDS: Glimepiride 4 MG TAB PO SCH (08:37)
[2017-11-22] MEDS ORDERED: Aspirin 81 mg Enteric Coated Tablet PO SCH (09:00)
[2017-11-22] MEDS ORDERED: Losartan/Hydrochlorothiazide 100 mg/25 mg Tablet PO SCH (09:00)
--- NOTE | 2017-11-22 09:11 | PDOC.CTH ---
Cardiology Progress Note - Subjective Pt. seen and eval. by me. She continues to have PVC's. She denies chest pain.No overnight events. - Objective Vital Signs Temp Pulse Resp BP BP Pulse Ox 11/22/17 07:15 98.5 F 73 16 131/60 98 11/22/17 02:15 97.8 F 64 18 129/76 100 Weight 189 lb 11.2 oz 11/21/17 11/22/17 11/23/17 06:59 06:59 06:59 Intake Total 1080 Balance 1080 - Physical Examination General/Neuro: alert & oriented x3 Neck: carotid US brisk Lungs: CTA Heart: RRR, other: (palpitatiions/ectopy.) Abdomen: NT/ND - Labs Result Diagrams: 11/21/17 09:25 11/21/17 11:05 Troponin/CKMB CK-MB (CK-2) 2.6 ng/mL (0-6.6) 11/21/17 09:20 Troponin I Less than 0.010 ng/mL (< 0.028) 11/21/17 15:21 - Assessment/Plan 1. PVC's : likely repeat ablation is the best course. Planned for next week in [place]. 2. Chest pain: resolved. Doubt thhis is due to coronaries. Recent negative stress test. 3. DM : per primary service. 4. HTN: stable. Okay for d/c today and follow up next week in [place] for repeat ablation of PVC' s. Review of Systems - Review of Systems EENTM: reports: no symptoms reported Respiratory: reports: no symptoms reported Cardiac (ROS): reports: palpitations ABD/GI: reports: no symptoms reported : reports: no symptoms reported Musculoskeletal: reports: no symptoms reported Skin: reports: no symptoms reported Neurological: reports: no symptoms reported
--- NOTE | 2017-11-22 11:40 | PRG ---
DATE OF SERVICE: 11/22/2017 SUBJECTIVE: Ms. Almanzar is doing well. She is having no further chest pain. She still has multipl e PVCs. She has been seen both by Cardiology and electrophysiology. Metal Patternmaker cleared her for bart lester and EP decides she needs further ablation, which their offices. Otherwise, no other me dical complaints are noted. PHYSICAL EXAMINATION: VITAL SIGNS: Blood pressure 131/60, temperature 98.5. LUNGS: Clear. HEART: Reveals no murmur. IMPRESSION: 1. Frequent premature ventricular contractions. 2. Type 2 diabetes mellitus. 3. Hypertension. PLAN: She can be discharged home today. She will be followed up with Dr. Warner in his clinic for fur ther ablation. She will follow up with me on a p.r.n. basis and follow up with Dr. Man on a p.r.n. basis. Her home medications will remain the same.
--- NOTE | 2017-11-22 15:28 | PDOC.CTH ---
Cardiology Progress Note - Subjective EP progress note: Patient seen and evaluated. No new cardiac concerns or complaints today. + palpitations, chest fluttering Denies heart racing, chest pain/pressure, dizziness, or passing out. No stroke like symptoms. - Objective Vital Signs Temp Pulse Resp BP BP Pulse Ox 11/22/17 08:35 98.5 F 73 16 131/60 98 11/22/17 08:00 98.5 F 73 16 11/22/17 07:15 98.5 F 73 16 131/60 98 Weight 189 lb 11.2 oz 11/21/17 11/22/17 11/23/17 06:59 06:59 06:59 Intake Total 1080 Balance 1080 - Physical Examination General/Neuro: alert & oriented x3, NAD Neck: carotid US brisk, no JVD present Lungs: CTA, unlabored respirations Heart: RRR (frequent PVCs on tele) - Telemetry Telemetry Rhythm: NSR with frequent PVC - Labs Result Diagrams: 11/21/17 09:25 11/21/17 11:05 Troponin/CKMB CK-MB (CK-2) 2.6 ng/mL (0-6.6) 11/21/17 09:20 Troponin I Less than 0.010 ng/mL (< 0.028) 11/21/17 15:21 - Assessment/Plan 1. High burden, symptomatic PVCs with prior ablation this year, now with recurrence not well controlled with medication. >30 PVCs/minute 2. Bradycardia related to pulse deficit with PVCS, not true bradycardia. Continue beta blockers 3. QT prolongation, poor candidate for antiarrhythmic therapy Arrangements are being made for redo ablation as outpatient, ideally within the next 7 days. Patient is in agreement.
--- NOTE | 2017-11-25 20:30 | EKG ---
Test Reason : Blood Pressure : / mmHG Vent. Rate : 090 BPM Atrial Rate : 090 BPM P-R Int : 130 ms QRS Dur : 066 ms QT Int : 392 ms P-R-T Axes : 053 -28 046 degrees QTc Int : 479 ms Sinus rhythm with frequent Premature ventricular complexes in a pattern of bigeminy Left atrial enlargement Borderline ECG Confirmed by CHRIS KHAN, PONCHO ([id number]), commissioning editor DEEPTI SHAH ([id number]) on 11/25/2017 8:30:17 PM Referred By: Confirmed By:PONCHO PEREZ MD
== END 2017-11-22 11:53 | disposition home or self-care (01) ==
LOC: ERS 09:03 → 2SW 14:15
PROVIDERS: ADMIT Family Medicine; ATTEND Family Medicine
DX: I49.3 Ventricular premature depolarization (principal); E11.9 Type 2 diabetes mellitus without complications; I11.9 Hypertensive heart disease without heart failure; Z79.82 Long term (current) use of aspirin; Z79.84 Long term (current) use of oral hypoglycemic drugs; Z79.899 Other long term (current) drug therapy
CPT/HCPCS: 36415; 36416; 71045; 80053; 82550; 82553; 84484; 85025; 93005; A4216; G0378